=== PATIENT | male | born 1980 | race Caucasian/White ===

== ENCOUNTER 2024-03-02 08:00 | Emergency (ER) | payer SELFPAY ==
[2024-03-02 08:20] VITALS: BP 131/86; PULSE 81; RESP 20; TEMP 36.8; O2SAT 97; BMI 33.3
--- NOTE | 2024-03-02 08:54 | EXP.UTC ---
Discharge Plan Disposition Patient Disposition: Home, Self-Care Condition: Good Prescriptions Prescriptions: New sulfamethoxazole-trimethoprim [Bactrim DS] 800-160 mg tablet 1 tab PO Q12H Qty: 20 0RF cephalexin 500 mg capsule 500 mg PO QID 10 Days Qty: 40 0RF mupirocin 2 % ointment 1 applic topical TID 10 Days Qty: 22 0RF Rx Instructions: apply to bite Referrals Follow up/Referrals: Provider,Referral, MD [Primary Care Provider] - See instructions Activity Restrictions/Add. Instructions Additional Instructions/Restrictions: *Start antibiotic(s) immediately and be sure to take as ordered for the FULL length of time although you may be feeling better or start to see improvement in the next 24-48 hours *Monitor closely. Outlined redness so that you can monitor easier. Follow up immediately for new or worsening symptoms including but not limited to redness, swelling, streaking from site fever or chills. *Warm compress 15 minutes 3-4 times day *Never squeeze or pop these on your own. Seek immediate medical attention next time this occurs *Monitor Temp. Tylenol every 4 hours as needed and ibuprofen every 6 hours as needed (as long as your primary care doctor has told you that it is ok to take both. For fever, aches, pain. ER if no less that 101 despite Tylenol and ibuprofen ?Follow up with your family doctor/primary care physician in the next 48-72 hours if no improvement Straight to ER if any life threatening symptoms Clinical Impressions Clinical Impression: Cellulitis Qualifiers: Site of cellulitis: unspecified site Qualified Code(s): L03.90 - Cellulitis, unspecified Instructions Patient Instructions: Trimethoprim/Sulfamethoxazole (Alternative Therapy), Cellulitis, Cephalexin Print Language Print Language: [place] Discharge ED Provider: Beth Cuevas [facility] – [place] HPI General Stated complaint: spider bite left arm Mode of Arrival: Ambulatory Source of Information: Patient Limitations: No Limitations Time Seen by Provider: 03/02/24 08:54 Description of Symptoms (Recalled from Triage Doc. by RN): PATIENT C/O POSSIBLE SPIDER BITE TO LEFT ARM THAT HE NOTICED 3 DAYS AGO. PATIENT C/O PAIN TO AREA, REDNESS AND WARMTH NOTED HEENT Symptoms (Recalled from RN notes): No Resp Symptoms (Recalled from RN notes): No Skin Symptoms (Recalled from RN notes): Yes MS Symptoms (Recalled from RN notes): No Functional Status (Recalled from RN notes): WNL History of Present Illness Provider Complaint: Patient states that he works outside in [place] States that he thinks he got spider bite on his left ac area States that he has been watching it and yesterday he started noticing it was getting worse redness was spreading and starting to swell so today he came in to get checked worried it is infected and starting to get worse Related Data Previous Rx's ?Medication ?Instructions ?Recorded cephalexin 500 mg capsule 500 mg PO QID 10 days #40 caps 03/02/24 mupirocin 2 % topical ointment 1 applic topical TID 10 days #22 03/02/24 grams sulfamethoxazole 800 1 tab PO Q12H #20 tabs 03/02/24 mg-trimethoprim 160 mg tablet (Bactrim DS) Allergies Allergy/AdvReac Type Severity Reaction Status Date / Time No Known Allergies Allergy Verified 03/02/24 08:48 Worker's Comp Is this a Worker's Comp case?: No [facility] Disclaimer: The information contained in this section may have been updated after the patient was seen, as this information can be updated by other users. Medical History (Updated 03/02/24 @ 09:00 by Beth Cuevas APRN) No significant past medical history Social History Smoking Status: Unknown if ever smoked alcohol intake: never current occupational status: employed Travel in the last 8 weeks: None ROS Obtained: Yes All systems reviewed & no additional complaints except as documented and Yes Systems reviewed as appropriate & no additional complaints except as documented Constitutional Constitutional: Reports system reviewed and no additional complaints, except as documented and Reports as per HPI Cardiovascular Cardiovascular: Reports system reviewed and no additional complaints, except as documented and Reports as per HPI Respiratory Respiratory: Reports system reviewed and no additional complaints, except as documented and Reports as per HPI Gastrointestinal Gastrointestingal: Reports system reviewed and no additional complaints, except as documented and as per HPI Integumentary/Breasts Skin/Breast: Reports system reviewed and no additional complaints, except as documented, Reports as per HPI and Reports other (Redness swelling ? spider bite to left ac area ) Physical Exam General General appearance: alert and in no apparent distress ENT ENT exam: Present mucous membranes moist Respiratory Respiratory exam: Present normal lung sounds bilaterally; Absent respiratory distress or wheezes Cardiovascular Cardiovascular exam: Present regular rate, normal rhythm and normal heart sounds Expanded Upper Extremity Exam Left: L/R Arms Bottom View: 1. redness, swelling and warmth noted, area marked for monitoring no drainage Neurological Exam Neurological exam: Present alert, oriented X3 and normal gait Medical Decision Making [place] Inquiry Pt receiving controlled substance: No [place] was queried for this patient: No Vital Signs: 03/02/24 08:20 Temperature 98.3 F Temperature Source Oral Pulse Rate [Left Brachial] 81 Respiratory Rate 20 Blood Pressure [Left Arm] 131/86 Blood Pressure Mean [Left Arm] 101 Blood Pressure Source [Left Arm] Automatic Cuff Blood Pressure Position [Left Arm] Sitting 02 Sat by Pulse Oximetry 97 Oxygen Delivery Method Room Air
[2024-03-02 09:08] VITALS: BP 131/86; PULSE 81; RESP 20; TEMP 36.8; O2SAT 97
== END 2024-03-02 09:11 | disposition home or self-care (01) ==
PROVIDERS: Emergency Provider Nurse Practitioner
DX: L03.114 Cellulitis of left upper limb (principal)
CPT/HCPCS: 99204; 99212; G0463